=== PATIENT | female | born 1945 | race Caucasian/White ===

== ENCOUNTER 2018-04-02 04:15 | Emergency (ER) | payer MEDICARE, BC, MEDICAID ==
[~2018-04-02] VITALS: Ht 170.2 cm; Wt 59.1 kg
[~2018-04-02 04:15] MED LIST: ARICEPT 5MG PO; ARICEPT10 MG PO; ASPI325T6 PO; CITRACAL + D CA1 TAB PO; FOSAMAX 70MG TA70 MG PO; KLONOPIN 0.5MG0.5 MG PO; ULTRAM 50MG TAB50 MG PO; ZOLOFT 100MG100 MG PO; ZOLOFT 50MG50 MG PO
[2018-04-02 04:16] VITALS: TEMP 98.6
[2018-04-02] MEDS ORDERED: BEE-ZEE1 TAB PO (04:38)
[2018-04-02] MEDS ORDERED: VITAMIN D31000 IU PO (04:39)
[2018-04-02] MEDS ORDERED: TYLENOL 325MG325 MG PO (04:42)
[2018-04-02] MEDS ORDERED: [UNRECOGNIZED DRUG - OTHER] PO (04:43)
[2018-04-02 07:50] VITALS: BP 123/61; PULSE 76
== END 2018-04-02 07:51 | disposition home or self-care (01) ==
LOC: COL.ER 04:15
DX: M54.5 Low back pain (principal); M53.3 Sacrococcygeal disorders, not elsewhere classified; F32.9 Major depressive disorder, single episode, unspecified; F41.9 Anxiety disorder, unspecified; F03.90 Unspecified dementia, unspecified severity, without behavioral disturbance, psychotic disturbance, mood disturbance, and anxiety; W06.XXXA Fall from bed, initial encounter

== ENCOUNTER → 2018-04-15 | Outpatient (CLI) | payer MEDICARE, BC, MEDICAID ==
[~2018-04-15] MED LIST changes: +BEE-ZEE1 TAB PO; +TYLENOL 325MG325 MG PO; +VITAMIN D31000 IU PO; +[UNRECOGNIZED DRUG - OTHER] PO
[2018-04-15 14:41] LABS: BASO # 0.1 (0.0-0.2); BASO % 0.5 % (0.0-2.0); EOS # 0.3 (0.0-0.7); EOS % 2.8 % (0-4.0); GRAN # 5.6 (1.4-6.5); HEMATOCRIT 42.2 % (37.0-47.0); HEMOGLOBIN 13.5 g/dl (12.5-16.0); LYMPH # 3.1 (1.2-3.4); LYMPH % 31.8 % (20.0-51.0); MEAN CELL VOLUME 94 fl (80.0-100.0); MEAN CORPUSCULAR HEMOGLOBIN 30 pg (27.0-31.0); MEAN CORPUSCULAR HGB CONC 32 g/dl (33.0-37.0); MEAN PLATELET VOLUME 10.5 fl (7.4-10.4); MONO # 0.6 (0.1-0.6); MONO % 6.7 % (1.7-9.3); PLATELET COUNT 300 K/mm3 (130-400); RED BLOOD COUNT 4.47 M/mm3 (4.10-5.30); REDCELL DISTRIBUTION WIDTH-CV 12.7 % (11.5-14.5)
[2018-04-15 14:52] LABS: ALBUMIN 4.1 gm/dL (3.5-5.0); BILIRUBIN,TOTAL 0.4 mg/dL (0.0-1.0); CALCIUM 9.7 mg/dL (8.4-10.2); CHOLESTEROL RISK RATIO 3.9; CREATININE, serum 0.81 mg/dL (0.52-1.25); POTASSIUM 5.7 mmol/L (3.4-5.0); TOTAL PROTEIN 7.5 gm/dL (6.4-8.2)
== END ==
LOC: ZLAB.STJ 13:12
PROVIDERS: Family Medicine
DX: E78.5 Hyperlipidemia, unspecified (principal); N18.1 Chronic kidney disease, stage 1; R68.89 Other general symptoms and signs

== ENCOUNTER → 2018-04-19 | Outpatient (CLI) | payer MEDICARE, BC, MEDICAID | LOC: ZLAB.STJ 10:58 | DX: N18.1 Chronic kidney disease, stage 1 (principal) ==

== ENCOUNTER → 2019-03-29 | Outpatient (CLI) | payer MEDICARE, BC, MEDICAID ==
[2019-03-29 15:49] LABS: COLLECTION METHOD CLEAN CATCH
[2019-03-29 15:52] LABS: BASO # 0.1 (0.0-0.2); BASO % 0.5 % (0.0-2.0); EOS # 0.2 (0.0-0.7); EOS % 1.9 % (0-4.0); GRAN # 7.6 (1.4-6.5); GRAN % 68.7 % (42.2-75.2); HEMATOCRIT 43.4 % (37.0-47.0); HEMOGLOBIN 13.9 g/dl (12.5-16.0); LYMPH # 2.4 (1.2-3.4); LYMPH % 21.6 % (20.0-51.0); MEAN CELL VOLUME 94 fl (80.0-100.0); MEAN CORPUSCULAR HEMOGLOBIN 30 pg (27.0-31.0); MEAN CORPUSCULAR HGB CONC 32 g/dl (33.0-37.0); MEAN PLATELET VOLUME 10.5 fl (7.4-10.4); MONO # 0.8 (0.1-0.6); MONO % 6.8 % (1.7-9.3); PLATELET COUNT 288 K/mm3 (130-400); RED BLOOD COUNT 4.62 M/mm3 (4.10-5.30); REDCELL DISTRIBUTION WIDTH-CV 13.2 % (11.5-14.5)
[2019-03-29 15:58] LABS: PH 6 (5-8); SQUAMOUS EPITHELIAL 0-2 /hpf; URINE APPEARANCE Hazy; URINE BACTERIA None Seen /hpf; URINE BILIRUBIN Negative (NEGATIVE); URINE BLOOD Negative (NEGATIVE); URINE COLOR Yellow; URINE GLUCOSE Negative (NEGATIVE); URINE KETONE Negative (NEGATIVE); URINE LEUKOCYTE ESTERASE 3+ (NEGATIVE); URINE NITRATE Negative (NEGATIVE); URINE PROTEIN(semi-quant) Negative (NEGATIVE); URINE UROBILINOGEN Negative (NEGATIVE)
[2019-03-29 16:46] LABS: ALBUMIN 4.4 gm/dL (3.5-5.0); BILIRUBIN,TOTAL 0.4 mg/dL (0.0-1.0); CALCIUM 8.9 mg/dL (8.4-10.2); CREATININE, serum 0.82 (0.52-1.25); POTASSIUM 4.6 mmol/L (3.4-5.0); TOTAL PROTEIN 7.9 gm/dL (6.4-8.2)
== END ==
LOC: ZLAB.STJ 14:30
PROVIDERS: Family Medicine
DX: N18.1 Chronic kidney disease, stage 1 (principal)

== ENCOUNTER → 2019-04-20 | Outpatient (CLI) | payer MEDICARE, BC, MEDICAID ==
[2019-04-20 13:37] LABS: ALBUMIN 4.4 gm/dL (3.5-5.0); BILIRUBIN UNCONJUGATED 0.2 mg/dL (0.0-1.1); BILIRUBIN,TOTAL 0.2 mg/dL (0.0-1.0); TOTAL PROTEIN 7.5 gm/dL (6.4-8.2)
== END ==
LOC: ZLAB.STJ 10:38
PROVIDERS: Family Medicine
DX: F41.9 Anxiety disorder, unspecified (principal)

== ENCOUNTER → 2019-07-11 | Outpatient (CLI) | payer MEDICARE, BC, MEDICAID | LOC: ZLAB.STJ 13:24 | DX: J09.X2 Influenza due to identified novel influenza A virus with other respiratory manifestations (principal) ==

== ENCOUNTER 2021-02-08 19:13 | Emergency (ER) | payer MEDICARE, BC, MEDICAID ==
[~2021-02-08] VITALS: Ht 170.2 cm; Wt 63.6 kg
[2021-02-08 19:15] VITALS: TEMP 98.1
[2021-02-08 22:46] VITALS: BP 144/68; PULSE 78
== END 2021-02-08 22:46 | disposition home or self-care (01) ==
LOC: COL.ER 19:13
DX: S81.012A Laceration without foreign body, left knee, initial encounter (principal); S70.02XA Contusion of left hip, initial encounter; F03.90 Unspecified dementia, unspecified severity, without behavioral disturbance, psychotic disturbance, mood disturbance, and anxiety; Z96.642 Presence of left artificial hip joint; Z79.899 Other long term (current) drug therapy; W01.0XXA Fall on same level from slipping, tripping and stumbling without subsequent striking against object, initial encounter; Y92.096 Garden or yard of other non-institutional residence as the place of occurrence of the external cause; Y99.0 Civilian activity done for income or pay

== ENCOUNTER → 2021-03-14 | Outpatient (CLI) | payer MEDICARE, BC, MEDICAID | LOC: COL.RAD 14:18 | DX: R52 Pain, unspecified (principal); W19.XXXA Unspecified fall, initial encounter ==

== ENCOUNTER → 2021-03-19 | Outpatient (CLI) | payer MEDICARE, BC, MEDICAID ==
[2021-03-19 09:56] LABS: BASO # 0.1 K/mm3 (0.0-0.2); BASO % 0.6 % (0.0-2.0); EOS # 0.4 K/mm3 (0.0-0.7); EOS % 5.4 % (0-4.0); GRAN # 5.2 K/mm3 (1.4-6.5); HEMATOCRIT 40.8 % (37.0-47.0); HEMOGLOBIN 13.3 g/dl (12.5-16.0); LYMPH # 1.7 K/mm3 (1.2-3.4); LYMPH % 21.6 % (20.0-51.0); MEAN CELL VOLUME 91 fl (80.0-100.0); MEAN CORPUSCULAR HEMOGLOBIN 30 pg (27.0-31.0); MEAN CORPUSCULAR HGB CONC 33 g/dl (33.0-37.0); MEAN PLATELET VOLUME 9.6 fl (7.4-10.4); MONO # 0.6 K/mm3 (0.1-0.6); PLATELET COUNT 281 K/mm3 (130-400); RED BLOOD COUNT 4.47 M/mm3 (4.10-5.30)
[2021-03-19 10:16] LABS: ALBUMIN 3.8 gm/dL (3.4-4.8); BILIRUBIN,TOTAL 0.3 mg/dL (0.2-1.2); CALCIUM 9.3 mg/dL (8.4-10.2); CREATININE, serum 0.81 mg/dL (0.57-1.11); POTASSIUM 4.1 mmol/L (3.5-4.5); TOTAL PROTEIN 7.5 gm/dL (6.2-8.1)
[2021-03-19 10:36] LABS: THYROID STIMULATING HORMONE 2.114 uIU/mL (0.350-4.940)
[2021-03-19 23:18] LABS: LDL-DIRECT-SEND OUT 146 mg/dL (0-129)
== END ==
LOC: ZLAB.STJ 09:31
PROVIDERS: Family Medicine
DX: R53.82 Chronic fatigue, unspecified (principal); E78.1 Pure hyperglyceridemia; R94.6 Abnormal results of thyroid function studies; N18.2 Chronic kidney disease, stage 2 (mild)

== ENCOUNTER → 2021-04-21 | Outpatient (CLI) | payer MEDICARE, BC, MEDICAID ==
[2021-04-21 12:11] LABS: ALBUMIN 3.8 gm/dL (3.4-4.8); BILIRUBIN,TOTAL 0.4 mg/dL (0.2-1.2); CALCIUM 9.1 mg/dL (8.4-10.2); CREATININE, serum 0.82 mg/dL (0.57-1.11); HEMATOCRIT 42.4 % (37.0-47.0); HEMOGLOBIN 13.8 g/dl (12.5-16.0); MEAN CELL VOLUME 90 fl (80.0-100.0); MEAN CORPUSCULAR HEMOGLOBIN 29 pg (27-31); MEAN CORPUSCULAR HGB CONC 33 g/dl (33.0-37.0); MEAN PLATELET VOLUME 9.8 fl (7.4-10.4); PLATELET COUNT 369 K/mm3 (130-400); POTASSIUM 4.2 mmol/L (3.5-4.5); RED BLOOD COUNT 4.69 M/mm3 (4.10-5.30); REDCELL DISTRIBUTION WIDTH-CV 13.1 % (11.5-14.5); TOTAL PROTEIN 7.8 gm/dL (6.2-8.1)
== END ==
LOC: ZLAB.STJ 11:47
PROVIDERS: Family Medicine
DX: N18.2 Chronic kidney disease, stage 2 (mild) (principal); M81.0 Age-related osteoporosis without current pathological fracture; E55.9 Vitamin D deficiency, unspecified

== ENCOUNTER 2021-11-08 09:40 | Emergency (ER) | payer MEDICARE, BC, MEDICAID ==
[~2021-11-08] VITALS: Ht 170.2 cm; Wt 63.6 kg
[2021-11-08 09:56] VITALS: TEMP 98.7
[2021-11-08 10:31] VITALS: BP 137/80; PULSE 71
== END 2021-11-08 10:31 | disposition home or self-care (01) ==
LOC: COL.ER 09:40
DX: N81.4 Uterovaginal prolapse, unspecified (principal)